=== PATIENT | female | born 1985 | race Caucasian/White ===

== ENCOUNTER 2016-12-19 20:59 | Emergency (ER) | payer MEDICAID ==
[2016-12-19] MEDS ORDERED: ONDANSETRON DISINTEGRATING 4 MG TAB PO ONE (22:03)
--- NOTE | 2016-12-19 22:29 | EDPHY ---
H & P Stated Complaint: QUARLES, nausea, taste in mouth, just started Strattera Time Seen by Provider: 12/19/16 22:18 HPI/ROS: Chief Complaint: Possible medication reaction HPI: 31-year-old woman with a history of anxiety started on Strattera 3 days ago. Since then she has been developing a gradual headache and a strange taste in her mouth. At worst headache as a 7/10. She did take some ibuprofen and states her headache is now gone. Has had some chills but no fevers at home. Some nausea but no vomiting. No chest pain or abdominal pain. Last menstrual period was 3 weeks ago was normal. She is . Does not believe she is . No urinary urgency or frequency. No stiff neck. No vision or hearing changes. ROS: 10 point Review of Systems is negative except as noted in the HPI. PMH: Anxiety Social History: Positive smoking, no alcohol, no recreational drug use Family History: non-contributory Physical Exam: Gen: Awake, Alert, No Distress HEENT: Nose: no rhinorrhea Eyes: PERRLA, EOMI Mouth: Moist mucosa Neck: Supple, no JVD Chest: nontender, lungs clear to auscultation Heart: S1, S2 normal, no murmur Abd: Soft, non-tender, no guarding Back: no CVA tenderness, no midline tenderness Ext: no edema, non-tender Skin: no rash Neuro: CN II-XII intact, Sensation grossly intact, Strength 5/5 in bilateral upper and lower extremities - Personal History LMP (Females 10-55): Irregular Current Tetanus/Diphtheria Vaccine: Yes Current Tetanus Diphtheria and Acellular Pertussis (TDAP): Yes Tetanus Vaccine Date: 08/2013 - Medical/Surgical History Hx Asthma: No Hx Chronic Respiratory Disease: No Hx Diabetes: No Hx Cardiac Disease: No Hx Renal Disease: No Hx Cirrhosis: No Hx Alcoholism: No Hx HIV/AIDS: No Hx Splenectomy or Spleen Trauma: No Other PMH: T3 PT2 AB1, depresssion, anxiety. - Social History Smoking Status: Heavy smoker Constitutional: Initial Vital Signs Temperature (C) 37.0 C 12/19/16 21:03 Heart Rate 82 12/19/16 21:03 Respiratory Rate 16 12/19/16 21:03 O2 Sat (%) 98 12/19/16 21:03 O2 Delivery Mode Room Air Allergies/Adverse Reactions: No Known Allergies Allergy (Verified 12/19/16 21:07) Home Medications: Medication Instructions Recorded Acyclovir 12/19/16 Strattera 12/19/16 Medical Decision Making ED Course/Re-evaluation: Patient with possible adverse affect 2 Strattera. She is very benign symptoms now. No headache. She has a completely normal examination and normal vital signs. I do not see any evidence of acute serotonin syndrome or anaphylactic reaction. I have advised the patient to discontinue the medication for the next several days to see if this affects her symptoms and follow up with primary care physician early next week. - Data Points Medications Given: Discontinued Medications Ondansetron HCl (Zofran Odt) 4 mg PO EDNOW ONE Stop: 12/19/16 22:04 Last Admin: 12/19/16 22:11 Dose: 4 mg Departure - Departure Disposition: Home, Routine, Self-Care Clinical Impression: Headache, Medication reaction Condition: Good Instructions: General Headache (ED) Additional Instructions: Discontinue the Strattera for the next several days to see if this affects his symptoms. Follow up with primary care physician in 3-4 days for re-evaluation. Return to the emergency depart for increasing headache, nausea, vomiting, fevers , chills, or any other concerns. Referrals: [facility] [Other] - As per Instructions
[2016-12-19] MEDS ORDERED: IBUPROFEN 600 MG TAB PO ONE (22:51)
[2016-12-19 22:56] VITALS: BP 131/68; PULSE 81; RESP 14; TEMP 97.9; O2SAT 94
== END 2016-12-19 22:54 | disposition home or self-care (01) ==
DX: R51 Headache (principal); F17.200 Nicotine dependence, unspecified, uncomplicated; T50.995A Adverse effect of other drugs, medicaments and biological substances, initial encounter

== ENCOUNTER 2017-05-29 22:28 | Emergency (ER) | payer MEDICAID ==
--- NOTE | 2017-05-29 22:29 | EDPHY ---
H & P HPI/ROS: HPI CHIEF COMPLAINT: Cough times months HISTORY OF PRESENT ILLNESS: This patient is a 31-year-old female, she denies having any significant medical history however does take attention deficit hyperactivity disorder medication she presents emergency room with a cough that she states she has had for months. However she states that her cough has gotten worse. It is nonproductive. She describes it is dry. She was seen by her primary care doctor and reports that she was given albuterol inhaler and some steroids. She now reports that the cough is worse over the past few weeks. She started feeling ill worse tonight decided to be evaluated. Of note she does smoke tobacco daily. I explained that it is probably a good idea to not smoke tobacco daily with having ongoing bronchitic cough. Additionally patient denies fever, pleuritic pain, denies hemoptysis. Past Medical History: Attention deficit hyperactivity disorder Past Surgical History: Denies any surgical history Social History: Denies daily use of alcohol or drugs. Does smoke tobacco daily. Family History: Contributory ROS REVIEW OF SYSTEMS: A comprehensive 10 point review of systems is otherwise negative aside from elements mentioned in the history of present illness. Exam Constitutional triage nursing summary reviewed, vital signs reviewed, awake/ alert. Eyes normal conjunctivae and sclera, EOMI, PERRLA. HENT normal inspection, atraumatic, moist mucus membranes, no epistaxis, neck supple/ no meningismus, no raccoon eyes. Respiratory clear to auscultation bilaterally, normal breath sounds, no respiratory distress, no wheezing. Cardiovascular tachycardic, regular rhythm, no murmur, no edema, distal pulses normal. Gastrointestinal soft, non-tender, no rebound, no guarding, normal bowel sounds, no distension, no pulsatile mass. Genitourinary no CVA tenderness. Musculoskeletal no midline vertebral tenderness, full range of motion, no calf swelling, no tenderness of extremities, no meningismus, good pulses, neurovascularly intact. Skin pink, warm, & dry, no rash, skin atraumatic. Neurologic awake, alert and oriented x 3, AAOx3, moves all 4 extremities equally, motor intact, sensory intact, CN II-XII intact, normal cerebellar, normal vision, normal speech. Psychiatric normal mood/affect. Heme/Lymph/Immune no lymphadenopathy. Differential Diagnosis: Includes but is not limited to in a particular order; bronchitis, chronic cough, reactive airway disease, pneumonia, pulmonary embolism, tobacco abuse, upper respiratory tract infection, viral syndrome, influenza Medical Decision Making: Plan for this patient basic blood draw, check influenza, chest x-ray two view, EKG for tachycardia, IV fluid bolus, and re- evaluate. Re-evaluation: EKG interpretation by me on record in [facility] system. Impression time of EKG 2255, sinus rhythm rate of 97, no acute ischemic change. No signs of ischemia. No elevation no ST depression or T-wave abnormalities. No prolonged intervals. ED x-ray chest two view: Negative for acute cardiopulmonary disease. 1230: Blood work has been reviewed. Chest x-ray reviewed. No acute cardiopulmonary disease. EKG is nonischemic. She has a negative D-dimer. I do not appreciate acute infiltrate on her chest x-ray. Her vital signs have been reviewed and are stable. Will give a prescription for albuterol, prednisone, azithromycin for bronchitic sounding cough. I do not feel that she needs any further chest imaging. Recommend close follow-up with primary care doctor. Additionally return precautions discussed with the patient. Most likely has a viral syndrome with bronchitis. Chronic cough. Source: Patient - Personal History Tetanus Vaccine Date: 08/2013 - Medical/Surgical History Hx Asthma: No Hx Chronic Respiratory Disease: No Hx Diabetes: No Hx Cardiac Disease: No Hx Renal Disease: No Hx Cirrhosis: No Hx Alcoholism: No Hx HIV/AIDS: No Hx Splenectomy or Spleen Trauma: No Other PMH: T3 PT2 AB1, depresssion, anxiety. - Social History Smoking Status: Heavy smoker Constitutional: Initial Vital Signs Temperature (C) 36.7 C 05/29/17 22:30 Heart Rate 120 H 05/29/17 22:30 Respiratory Rate 20 05/29/17 22:30 Blood Pressure 125/83 H 05/29/17 22:30 O2 Sat (%) 99 05/29/17 22:30 O2 Delivery Mode Room Air Allergies/Adverse Reactions: atomoxetine [From Strattera] Allergy (Verified 05/29/17 22:33) Home Medications: Medication Instructions Recorded Albuterol [Proventil Inhaler HFA 1 - 2 puffs IH Q4H 05/29/17 (*)] Amphet Asp and D/Amphet [Adderall 50 mg PO DAILY 05/29/17 20 mg (*)] Fexofenadine/Pseudoephedrine 1 each PO 05/29/17 [Ai-D 12 Hour Tablet] Montelukast Sodium [Singulair] 10 mg PO 05/29/17 predniSONE 20 mg PO 05/29/17 AZITHROMYCIN [Z-PACK] 250 mg PO DAILY #6 tab 05/30/17 Albuterol [Proventil Inhaler HFA 1 - 2 puffs IH Q4H #1 mdi 05/30/17 (*)] guaiFENesin [Guaifenesin ER] 600 mg PO BID #14 tab.er.12h 05/30/17 predniSONE 60 mg PO DAILY #15 tab 05/30/17 Medical Decision Making - Diagnostics Imaging Results: Imaging Impressions Chest X-Ray 05/29/17 22:41 Impression: No acute pulmonary disease. - Data Points Laboratory Results: Laboratory Results 05/29/17 22:54 05/29/17 22:54 05/29/17 05/29/17 05/29/17 22:54 22:54 22:54 WBC RBC Hgb Hct MCV MCH MCHC RDW Plt Count MPV Neut % (Auto) Lymph % (Auto) [place] % (Auto) Eos % (Auto) Baso % (Auto) Nucleat RBC Rel Count Absolute Neuts (auto) Absolute Lymphs (auto) Absolute Monos (auto) Absolute Eos (auto) Absolute Basos (auto) Absolute Nucleated RBC Immature Gran % Immature Gran # D-Dimer < 0.27 ug/mLFEU ug/mLFEU (0.00-0.50) Sodium 142 mEq/L mEq/L (134-144) Potassium 4.0 mEq/L mEq/L (3.5-5.2) Chloride 106 mEq/L mEq/L (97-110) Carbon Dioxide 23 mEq/l mEq/l (22-31) Anion Gap 13 mEq/L mEq/L (8-16) BUN 13 mg/dL mg/dL (7-23) Creatinine 0.7 mg/dL mg/dL (0.6-1.0) Estimated GFR > 60 Glucose 102 mg/dL H mg/dL (70-100) Calcium 9.9 mg/dL mg/dL (8.5-10.4) Beta HCG, Qual NEGATIVE Nasal Influenza A PCR Nasal Influenza B PCR 05/29/17 05/29/17 22:54 22:43 WBC 11.84 10^3/uL H 10^3/uL (3.80-9.50) RBC 4.72 10^6/uL 10^6/uL (4.18-5.33) Hgb 15.5 g/dL g/dL (12.6-16.3) Hct 43.1 % % (38.0-47.0) MCV 91.3 fL fL (81.5-99.8) MCH 32.8 pg pg (27.9-34.1) MCHC 36.0 g/dL g/dL (32.4-36.7) RDW 12.1 % % (11.5-15.2) Plt Count 293 10^3/uL 10^3/uL (150-400) MPV 10.0 fL fL (8.7-11.7) Neut % (Auto) 85.7 % H % (39.3-74.2) Lymph % (Auto) 9.5 % L % (15.0-45.0) [place] % (Auto) 4.1 % L % (4.5-13.0) Eos % (Auto) 0.1 % L % (0.6-7.6) Baso % (Auto) 0.2 % L % (0.3-1.7) Nucleat RBC Rel Count 0.0 % % (0.0-0.2) Absolute Neuts (auto) 10.15 10^3/uL H 10^3/uL (1.70-6.50) Absolute Lymphs (auto) 1.13 10^3/uL 10^3/uL (1.00-3.00) Absolute Monos (auto) 0.48 10^3/uL 10^3/uL (0.30-0.80) Absolute Eos (auto) 0.01 10^3/uL L 10^3/uL (0.03-0.40) Absolute Basos (auto) 0.02 10^3/uL 10^3/uL (0.02-0.10) Absolute Nucleated RBC 0.00 10^3/uL 10^3/uL (0-0.01) Immature Gran % 0.4 % % (0.0-1.1) Immature Gran # 0.05 10^3/uL 10^3/uL (0.00-0.10) D-Dimer Sodium Potassium Chloride Carbon Dioxide Anion Gap BUN Creatinine Estimated GFR Glucose Calcium Beta HCG, Qual Nasal Influenza A PCR NEGATIVE FOR FLU A (NEGATIVE) Nasal Influenza B PCR NEGATIVE FOR FLU B (NEGATIVE) Medications Given: Discontinued Medications Sodium Chloride (Ns) 1,000 mls @ 0 mls/hr IV EDNOW ONE; Wide Open PRN Reason: Protocol Stop: 05/29/17 22:42 Last Admin: 05/29/17 22:57 Dose: 1,000 mls Departure - Departure Disposition: Home, Routine, Self-Care Clinical Impression: Cough Acute bronchitis Qualifiers: Bronchitis organism: unspecified organism Qualified Code(s): J20.9 - Acute bronchitis, unspecified Condition: Good Instructions: Chronic Cough (ED), Acute Bronchitis (ED) Additional Instructions: 1. Follow up with her primary care doctor. 2. Return to the emergency room if you have worsening symptoms questions or concerns. 3. Prescriptions as prescribed. 4. Stop smoking. Referrals: [facility] [Other] - As per Instructions Prescriptions: Albuterol [Proventil Inhaler HFA (*)] 1 - 2 puffs IH Q4H #1 mdi AZITHROMYCIN [Z-PACK] 250 mg PO DAILY #6 tab guaiFENesin [Guaifenesin ER] 600 mg PO BID #14 tab.er.12h predniSONE 60 mg PO DAILY #15 tab
[2017-05-29] MEDS ORDERED: NS 1,000 ML IV ONE (22:41)
--- NOTE | 2017-05-29 22:56 | CPEKG ---
Heart Rate: 97 RR Interval: 619 P-R Interval: 132 QRSD Interval: 88 QT Interval: 348 QTC Interval: 442 P [place]: 62 QRS [place]: 65 T Wave [place]: 49 EKG Severity - NORMAL ECG - EKG Impression: SINUS RHYTHM Electronically Signed By: Gustavo Ramirez 30-May-2017 05:19:55
[2017-05-29 23:03] LABS: PLATELET COUNT 293 10^3/uL (150-400)
[2017-05-30 00:11] VITALS: O2SAT 98
[2017-05-30 00:46] VITALS: BP 109/48; PULSE 101; RESP 18; TEMP 98.4
== END 2017-05-30 00:56 | disposition home or self-care (01) ==
DX: J20.9 Acute bronchitis, unspecified (principal); E86.9 Volume depletion, unspecified; F17.200 Nicotine dependence, unspecified, uncomplicated